=== PATIENT | male | born 1960 ===

== ENCOUNTER 2017-01-08 11:52 | Emergency (ER) | payer OTHER ==
[2017-01-08 11:55] VITALS: BMI 30.7
[2017-01-08 11:56] VITALS: BP 138/76; PULSE 71; RESP 18; TEMP 98.2; O2SAT 99
[2017-01-08] MEDS ORDERED: Phenylephrine 0.5% Nasal Spray NAS STA (12:10)
--- NOTE | 2017-01-08 12:14 | ED PDOC ---
HPI: Nose Bleed Time Seen by Provider: 01/08/17 12:06 Chief Complaint (Nursing): ENT Problem Chief Complaint (Provider): ENT Problem History Per: Patient History/Exam Limitations: no limitations Onset/Duration Of Symptoms: Days (x 1) Current Symptoms Are (Timing): Still Present Location Of Bleeding: Left Nare Anticoagulant/Antiplatlet Use?: No Recent Aspirin Use: No Additional Complaint(s): Talon is a 56 y/o male who presents to the ED for evaluation of a nose bleed since yesterday. Denies any trauma, nose blowing, or seasonal allergies. No history of prior nose bleeds. Patient is not taking any Plavix, Aspirin, or anticoagulants. PMD: Shaik Milagro Past Medical History Reviewed: Historical Data, Nursing Documentation, Vital Signs Vital Signs: Last Vital Signs Temp 98.2 F 01/08/17 11:55 Pulse 71 01/08/17 11:55 Resp 18 01/08/17 11:55 BP 138/76 01/08/17 11:55 Pulse Ox 99 01/08/17 11:55 - Medical History PMH: Arthritis, Hypercholesterolemia - Surgical History Surgical History: No Surg Hx - Family History Family History: States: Unknown Family Hx - Social History Current smoker - smoking cessation education provided: No Alcohol: None Drugs: Denies - Home Medications Home Medications: Ambulatory Orders Medication Instructions Recorded ALPRAZolam [Xanax] 0.25 mg PO Q8 PRN #3 tab 01/08/17 Amoxicillin/Clavulanate [Augmentin 1 tab PO BID #10 tab 01/08/17 875 MG-125 MG] - Allergies Allergies/Adverse Reactions: Allergies Allergy/AdvReac Type Severity Reaction Status Date / Time No Known Allergies Allergy Verified 01/08/17 12:17 Review of Systems ROS Statement: Except As Marked, All Systems Reviewed And Found Negative ENT: Positive for: Other (Nose bleed) Physical Exam - Reviewed Nursing Documentation Reviewed: Yes Vital Signs Reviewed: Yes - Physical Exam Appears: Positive for: Well, Non-toxic, No Acute Distress Head Exam: Positive for: ATRAUMATIC, NORMOCEPHALIC Skin: Positive for: Normal Color, Warm, Dry Eye Exam: Positive for: EOMI, Normal appearance, PERRL ENT: Positive for: Other (Dried blood noted to the left lateral nare. Point region of small clot noted to medial anterior septum.) Neck: Positive for: Normal, Painless ROM Neurologic/Psych: Positive for: Alert, Oriented - ECG O2 Sat by Pulse Oximetry: 99 (RA) Pulse Ox Interpretation: Normal Medical Decision Making Medical Decision Making: Time: 12:10 Initial Plan: --Will pack the site with Tello-Synephrine soap gauze and reevaluate after 20 mins Time: 12:40 --Upon provider reevaluation, patient still w/ active bleeding --Advised patient to apply good pressure and lean forward. --Re-packed the site x2. --Patient observed for 25 minutes with no bleeding Time: 14:00 --4.5 sonimeter Rhino-Rocket placed in left nare, inflated with 8 ml of air. Consent obtained prior to insertion. --Will f/u with ENT in 2 days for removal of Rhino-Rocket --States he had just recently started daily Aspirin. Advised to stop for 2 days until seen by ENT Time: 14:22 Clinical Impression: Anterior epistaxis --Patient is medically stable and will be discharged home with Rx for Augmentin and Xanax. --Counseled patient on importance of follow up with ENT. Referral provided. --There is agreement to discharge plan. Return if symptoms persist or worsen. Scribe Attestation: Documented by Gladis Palumbo, acting as a scribe for Florence Kerr PA-C Provider Scribe Attestation: All medical record entries made by the Scribe were at my direction and personally dictated by me. I have reviewed the chart and agree that the record accurately reflects my personal performance of the history, physical exam, medical decision making, and the department course for this patient. I have also personally directed, reviewed, and agree with the discharge instructions and disposition. Disposition - Clinical Impression Clinical Impression: Anterior epistaxis - Patient ED Disposition Is Patient to be Admitted: No Counseled Patient/Family Regarding: Diagnosis, Need For Followup, Rx Given - Disposition Referrals: Fabiano Sampson MD [Staff Provider] - Disposition Time: 14:21 Condition: STABLE Prescriptions: ALPRAZolam [Xanax] 0.25 mg PO Q8 PRN #3 tab PRN Reason: Anxiety Amoxicillin/Clavulanate [Augmentin 875 MG-125 MG] 1 tab PO BID #10 tab Instructions: Nosebleed (ED) Forms: [employer] (Maltese), [facility] School/Work Excuse
[2017-01-08] MEDS ORDERED: Phenylephrine 0.5% Nasal Spray NAS ONE (12:15)
== END 2017-01-08 14:40 | disposition home or self-care (01) ==
LOC: H.ER 11:52
DX: R04.0 Epistaxis (principal)

== ENCOUNTER 2017-11-10 08:29 | Emergency (ER) | payer OTHER ==
[2017-11-10 08:56] VITALS: BMI 30.1
[2017-11-10 09:00] VITALS: BP 134/87; TEMP 97.7; O2SAT 98
--- NOTE | 2017-11-10 09:14 | ED PDOC ---
HPI: Nose Bleed Time Seen by Provider: 11/10/17 09:00 Chief Complaint (Nursing): ENT Problem Chief Complaint (Provider): Nose Bleed History Per: Patient History/Exam Limitations: no limitations Onset/Duration Of Symptoms: Days (x2) Current Symptoms Are (Timing): Still Present Location Of Bleeding: Left Nare Symptoms Have Been: Continuous Severity: None Associated Symptoms: denies: Lightheadedness, Bleeding From Gums, Nasal Congestion Anticoagulant/Antiplatlet Use?: No Recent Aspirin Use: No Additional Complaint(s): 57 year old with a past medical history of hyperlipidemia, rheumatoid arthritis and gout presents to the emergency department with a nosebleed. Patient states that the bleeding began yesterday after he blew his nose. Denies headaches, dizziness, nausea, vomiting, use of blood thinners, bleeding from gums. Of note: Patient is currently taking Mitigan 0.5mg 2x a day; Vitamind D; Allupurinol 300 mg; Atorvastatin PMD: Dr. Shaik Humphrey Past Medical History Reviewed: Historical Data, Nursing Documentation, Vital Signs Vital Signs: Last Vital Signs Temp 97.7 F 11/10/17 08:58 Pulse 20 L 11/10/17 08:58 Resp BP 134/87 11/10/17 08:58 Pulse Ox 98 11/10/17 08:58 - Medical History PMH: Arthritis, Hypercholesterolemia - Surgical History Other surgeries: Colostomy - Family History Family History: States: Unknown Family Hx - Social History Current smoker - smoking cessation education provided: No Alcohol: Occasional Drugs: Denies - Home Medications Home Medications: Ambulatory Orders Medication Instructions Recorded ALPRAZolam [Xanax] 0.25 mg PO Q8 PRN #3 tab 01/08/17 Amoxicillin/Clavulanate [Augmentin 1 tab PO BID #10 tab 01/08/17 875 MG-125 MG] Amoxicillin/Clavulanate [Augmentin 1 tab PO BID #14 tab 11/10/17 875 MG-125 MG] - Allergies Allergies/Adverse Reactions: Allergies Allergy/AdvReac Type Severity Reaction Status Date / Time No Known Allergies Allergy Verified 11/10/17 08:54 Review of Systems ROS Statement: Except As Marked, All Systems Reviewed And Found Negative ENT: Positive for: Nose Discharge (nose bleed) Cardiovascular: Negative for: Light Headedness Gastrointestinal: Negative for: Nausea, Vomiting Neurological: Negative for: Headache, Dizziness Physical Exam - Reviewed Nursing Documentation Reviewed: Yes Vital Signs Reviewed: Yes - Physical Exam Appears: Positive for: Non-toxic, No Acute Distress Skin: Positive for: Normal Color, Warm, Dry. Negative for: Rash Eye Exam: Positive for: Normal appearance, EOMI, PERRL. Negative for: Nystagmus ENT: Positive for: Other (dried and wet blood lateral side of left nare) Cardiovascular/Chest: Positive for: Regular Rate, Rhythm, Chest Non Tender. Negative for: Murmur, Tachycardia Respiratory: Positive for: Normal Breath Sounds. Negative for: Rales, Rhonchi, Wheezing, Respiratory Distress Gastrointestinal/Abdominal: Positive for: Normal Exam, Bowel Sounds, Soft. Negative for: Tenderness, Mass, Guarding, Rebound Neurologic/Psych: Positive for: Alert, Oriented, Gait. Negative for: Motor/ Sensory Deficits - ECG O2 Sat by Pulse Oximetry: 98 (RA) Pulse Ox Interpretation: Normal Medical Decision Making Medical Decision Makin Initial Impression 57 year old male presenting with nose bleed Initial Plan: * Reevaluation 0915 Patient's nose was packed with 4.5 cm rapid rhino. Tolerated procedure well. 0938 Patient is medically stable and will be discharged mandie with rx for antibiotic and instructed to follow up with primary care provider. ANNETTE GODINEZ, thank you for letting us take care of you today. Your provider was Yudith Brown MD and you were treated for NOSEBLEED. The emergency medical care you received today was directed at your acute symptoms. If you were prescribed any medication, please fill it and take as directed. It may take several days for your symptoms to resolve. Return to the Emergency Department if your symptoms worsen, do not improve, or if you have any other problems. Please contact your doctor or call one of the physicians/clinics you have been referred to that are listed on the Patient Visit Information form that is included in your discharge packet. Bring any paperwork you were given at discharge with you along with any medications you are taking to your follow up visit. Our treatment cannot replace ongoing medical care by a primary care provider outside of the emergency department. Thank you for allowing the [facility] team to be part of your care today. --- Documented by Megan Shaw acting as a scribe for Yudith Brown MD. All medical record entries made by the Scribe were at my direction and personally dictated by me. I have reviewed the chart and agree that the record accurately reflects my personal performance of the history, physical exam, medical decision making, and the department course for this patient. I have also personally directed, reviewed, and agree with the discharge instructions and disposition. Disposition - Clinical Impression Clinical Impression: Acute anterior epistaxis - Patient ED Disposition Is Patient to be Admitted: No Doctor Will See Patient In The: Office Counseled Patient/Family Regarding: Studies Performed, Diagnosis, Need For Followup - Disposition Referrals: [facility] [Outside] Shaik Humphrey MD [Family Provider] - Disposition: Routine/Home Disposition Time: 09:38 Condition: STABLE Additional Instructions: Please followup ENT specialist for further care within 2-3 days. Please take antibiotics to prevent infection. Call Dr. Humphrey if you need assistance with the referral. Prescriptions: Amoxicillin/Clavulanate [Augmentin 875 MG-125 MG] 1 tab PO BID #14 tab Instructions: Nosebleeds Forms: [facility] (Greek) - POA Present On Arrival: None
[2017-11-10 12:52] VITALS: PULSE 80; RESP 18
== END 2017-11-10 12:52 | disposition home or self-care (01) ==
LOC: H.ER 08:29
DX: R04.0 Epistaxis (principal); E78.00 Pure hypercholesterolemia, unspecified

== ENCOUNTER 2018-07-12 14:47 | Emergency (ER) | payer OTHER ==
[2018-07-12 14:47] VITALS: BMI 30.1
--- NOTE | 2018-07-12 15:14 | ED PDOC ---
Lower Extremity Pain/Injury Time Seen by Provider: 07/12/18 15:02 Chief Complaint (Nursing): Lower Extremity Problem/Injury Chief Complaint (Provider): Left Leg Pain/Swelling History Per: Patient History/Exam Limitations: no limitations Onset/Duration Of Symptoms: Days (x1 week) Current Symptoms Are (Timing): Still Present Additional Complaint(s): 58 year old male presents to the ED for evaluation of left farias pain and swelling for the past week. Patient reports that a couple days ago, he saw his PMD who told him to get an XR on 07/14, but he notes the pain was unrelieved by his Indomethacin (for GOUT/ arthritis pain), last dose this morning, so he came to ED today. Did not take his Colchicine today. Denies any recent falls / injury / trauma, but does note he fell two weeks ago sustaining multiple bruises on his back and chest, without injury to the leg. Additionally denies chest pain, loss of consciousness, shortness of breath, joint pain, calf pain, foot pain / swelling, other extremity pain / swelling, numbness, tingling, and abdominal pain. PMD: Milagro Past Medical History Reviewed: Historical Data, Nursing Documentation, Vital Signs Vital Signs: Last Vital Signs Temp 97.7 F 07/12/18 14:50 Pulse 92 H 07/12/18 14:50 Resp 20 07/12/18 14:50 BP 181/93 H 07/12/18 14:50 Pulse Ox 98 07/12/18 14:50 - Medical History PMH: Anemia, Arthritis, HTN, Hypercholesterolemia, Hypothyroidism Other PMH: GOUT - Family History Family History: States: Unknown Family Hx - Social History Current smoker - smoking cessation education provided: No Alcohol: None Drugs: Denies - Home Medications Home Medications: Ambulatory Orders Medication Instructions Recorded ALPRAZolam [Xanax] 0.25 mg PO Q8 PRN #3 tab 01/08/17 Amoxicillin/Clavulanate [Augmentin 1 tab PO BID #10 tab 01/08/17 875 MG-125 MG] Amoxicillin/Clavulanate [Augmentin 1 tab PO BID #14 tab 11/10/17 875 MG-125 MG] - Allergies Allergies/Adverse Reactions: Allergies Allergy/AdvReac Type Severity Reaction Status Date / Time No Known Allergies Allergy Verified 07/12/18 14:50 Review of Systems ROS Statement: Except As Marked, All Systems Reviewed And Found Negative Cardiovascular: Negative for: Chest Pain Respiratory: Negative for: Shortness of Breath Gastrointestinal: Negative for: Abdominal Pain Musculoskeletal: Positive for: Leg Pain (left farias pain with swelling; no right leg pain). Negative for: Arm Pain, Foot Pain (or swelling), Other (calf pain; joint pain) Skin: Positive for: Bruising (to back and chest) Neurological: Negative for: Numbness (or tingling), Other (loss of co nsciousness) Physical Exam - Reviewed Nursing Documentation Reviewed: Yes Vital Signs Reviewed: Yes - Physical Exam Appears: Positive for: No Acute Distress Head Exam: Positive for: ATRAUMATIC, NORMOCEPHALIC Skin: Positive for: Warm, Dry Eye Exam: Positive for: Normal appearance Neck: Positive for: Normal, Painless ROM, Supple Cardiovascular/Chest: Positive for: Regular Rate, Rhythm, Chest Non Tender (but 3-1cm in diameter ecchymotic patches to right anterior chest) Respiratory: Positive for: Normal Breath Sounds. Negative for: Respiratory Distress Pulses-Dorsalis Pedis (L): 2+ Pulses-Dorsalis Pedis (R): 2+ Gastrointestinal/Abdominal: Positive for: Normal Exam, Soft. Negative for: Tenderness Back: Positive for: Other (right upper mid and flank: 4 ecchymotic patches approximately 4cm in diameter, non-tender). Negative for: L CVA Tenderness, R CVA Tenderness Extremity: Positive for: Normal ROM (all extremities, joints, and toes), Tenderness (to left mid farias with mildly tender ecchymosis to site of pain), Swelling (mild swelling to left mid farias). Negative for: Pedal Edema, Calf Tenderness (bilaterally), Deformity Neurological/Psych: Positive for: Awake, Alert, Oriented (x3). Negative for: Motor/Sensory Deficits - ECG O2 Sat by Pulse Oximetry: 98 (RA) Pulse Ox Interpretation: Normal - Radiology X-Ray: Interpreted by Me, Viewed By Me X-Ray Interpretation: No Acute Disease - Progress ED Course And Treament: 1618: Stable. AAOx3. Pain free. Tolerated PO. Fu with pcp. Medical Decision Making Medical Decision Making: Time: 1513 Initial Impression: r/o fracture Initial Plan: --Ultram 50mg PO --Tibia fibula left XR Scribe Attestation: Documented by Nadia Cottrell, acting as a scribe for Adryan Lopez MD. Provider Scribe Attestation: All medical record entries made by the Scribe were at my direction and personally dictated by me. I have reviewed the chart and agree that the record accurately reflects my personal performance of the history, physical exam, medical decision making, and the department course for this patient. I have also personally directed, reviewed, and agree with the discharge instructions and disposition. Disposition - Clinical Impression Clinical Impression: Leg pain, anterior - Patient ED Disposition Is Patient to be Admitted: No Counseled Patient/Family Regarding: Studies Performed, Diagnosis, Need For Followup, Rx Given - Disposition Referrals: [facility] [Outside] - 07/14/18 Disposition: Routine/Home Disposition Time: 16:20 Condition: STABLE Additional Instructions: Return if not better in 3 days. Instructions: Muscle and Bone Pain (DC)
[2018-07-12 16:39] VITALS: BP 146/96; PULSE 70; RESP 18; TEMP 97.6; O2SAT 97
--- NOTE | 2018-07-12 18:35 | RAD ---
Date of service: 07/12/2018 HISTORY: PAIN COMPARISON: None available. FINDINGS: BONES: Normal. No fracture. JOINTS: Normal. No osteoarthritis. SOFT TISSUE: Normal. OTHER FINDINGS: Retrocalcaneal heel spur.. IMPRESSION: Retrocalcaneal heel spur.
== END 2018-07-12 16:40 | disposition home or self-care (01) ==
LOC: H.ER 14:47
DX: M79.605 Pain in left leg (principal); M10.9 Gout, unspecified; I10 Essential (primary) hypertension; E03.9 Hypothyroidism, unspecified; E78.00 Pure hypercholesterolemia, unspecified